=== PATIENT | male | born 1995 | race Caucasian/White ===

== ENCOUNTER 2016-12-02 15:03 | Emergency (ER) | payer OTHER ==
[2016-12-02 18:25] LABS: BASOPHIL 0.5 % (0-2); EOSINOPHIL 0.4 % (0-5); HCT 43.4 % (42.0-52.0); LYMPHOCYTE 12.3 % (15-48); MCHC 34.6 g/dL (32.0-36.0); MCV 89.7 fL (78.0-100.0); MONOCYTE 6.8 % (0-12); MPV 11.8 fL (6.0-9.5); PLT 196 K/uL (150-400); RBC 4.84 M/uL (4.70-6.00); RDW 12.5 % (11.5-14.0); WBC 7.7 K/uL (4.0-10.5)
[2016-12-02 18:40] LABS: BILIRUBIN - TOTAL 0.6 mg/dL (0.1-1.0); CREATININE 0.8 mg/dL (0.7-1.2); GLOBULIN (CALCULATION) 2.5 g/dL (2.2-4.2); POTASSIUM 4.2 mmol/L (3.5-5.1); TOTAL PROTEIN 7.5 g/dL (6.4-8.3)
== END 2016-12-02 20:30 | disposition home or self-care (01) ==
LOC: FER 15:03
PROVIDERS: Internal Medicine
DX: R19.7 Diarrhea, unspecified (principal); R10.32 Left lower quadrant pain; F17.210 Nicotine dependence, cigarettes, uncomplicated; Z98.890 Other specified postprocedural states
CPT/HCPCS: 36415; 80053; 82150; 83690; 85025; 87339; Q9967